=== PATIENT | male | born 1970 | race Caucasian/White ===

== ENCOUNTER 2017-12-08 07:06 | Outpatient (CLI) | payer OTHER ==
[~2017-12-08 07:06] MED LIST: KETO10TA2 PO; TRAMADOL HCL-AP1 TAB PO
== END 2017-12-08 07:39 | disposition home or self-care (01) ==
LOC: NUCLEAR 07:06
DX: E05.00 Thyrotoxicosis with diffuse goiter without thyrotoxic crisis or storm (principal)
CPT/HCPCS: 78012; A9531

== ENCOUNTER 2017-12-09 07:46 | Outpatient (CLI) | payer OTHER | END 2017-12-09 08:10 | disposition home or self-care (01) | LOC: NUCLEAR 07:46 | DX: E05.00 Thyrotoxicosis with diffuse goiter without thyrotoxic crisis or storm (principal) | CPT/HCPCS: 78013; A9512 ==

== ENCOUNTER 2018-07-27 23:19 | Emergency (ER) | payer OTHER ==
[~2018-07-27] VITALS: Ht 170.2 cm; Wt 81.6 kg
[2018-07-27] MEDS ORDERED: LOSARTAN-HCTZ1 EACH (23:32)
[2018-07-27] MEDS ORDERED: SYNTHROID50 MCG (23:32)
[2018-07-28] MEDS ORDERED: KETO10TA2 PO (05:00)
[2018-07-28] MEDS ORDERED: TAMS0.4C PO (05:00)
== END 2018-07-28 05:40 | disposition home or self-care (01) ==
LOC: ER 23:19
DX: N20.0 Calculus of kidney (principal)